=== PATIENT | female | born 2005 | race Caucasian/White ===

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

== ENCOUNTER 2024-03-15 17:40 | Emergency (ER) | payer OTHER, SELFPAY ==
--- NOTE | 2024-03-15 18:36 | ED.HA ---
HPI - Headache General Chief Complaint: Headache Stated Complaint: Migraine Time Seen by Provider: 03/15/24 21:03 Related Data Previous Rx's ?Medication ?Instructions ?Recorded cyclobenzaprine 10 mg tablet 10 mg PO TID PRN muscle spasm #10 02/12/23 tabs lidocaine 5 % topical patch 1 patch topical DAILY #5 ea 02/12/23 tramadol 50 mg tablet 50 mg PO BID PRN pain #4 tabs 02/12/23 ondansetron 4 mg disintegrating 4 mg PO TID PRN nausea and 03/15/24 tablet vomiting 5 days #10 tabs Allergies Allergy/AdvReac Type Severity Reaction Status Date / Time clindamycin Allergy Rash Verified 03/15/24 18:39 PMFSH Past Medical History Surgical History H/O gastric sleeve Social History Social History Smoked in Last 30 Days: No Use of substances other than those prescribed or required for medical reasons: No Advance Directives: No Advance Directives Information Provided: No Patient : No Physical Exam Vital Signs: Vital Signs: Last Vital Signs Temp 98.7 F 03/15/24 21:05 Pulse 83 03/15/24 21:05 Resp 17 03/15/24 21:05 BP 153/100 H 03/15/24 21:05 Pulse Ox 98 03/15/24 21:05 O2 Del Method Room Air 03/15/24 21:05 BMI result Body Mass Index 51.1 Course Course Course Narrative: This is a Rapid Medical Examination (RME) performed by Leodan Charles PA-C in triage. Full HPI, ROS, assessment and treatment plan per primary provider in the Main ED. 19 yo female with history of migraines, history of gastric sleeve presents to the ER for evaluation of a headache that started yesterday morning. +photophobia, +nausea. no improvement with tylenol and motrin. used to be on sumatriptan but no longer has a doctor. hit in the face with a squishy ball at camp yesterday, no LOC. headache has been worse since then. Plan: treat and reassess Medications Administered Discontinued Medications Generic Name Dose Route Start Last Admin Trade Name Freq PRN Reason Stop Dose Admin Diphenhydramine HCl 50 mg 03/15/24 21:48 03/15/24 22:09 Diphenhydramine Hcl 50 Mg/Ml Vial IVPUSH 03/15/24 21:49 50 mg ONCE ONE Administration Sodium Chloride 1,000 mls @ 999 mls/hr 03/15/24 22:00 03/15/24 23:02 Ns IV 03/15/24 23:00 Infused .Q1H1M ANA Infusion Ketorolac Tromethamine 15 mg 03/15/24 21:48 03/15/24 22:09 Ketorolac Tromethamine 15 Mg/Ml Vial IVPUSH 03/15/24 21:49 15 mg ONCE ONE Administration Metoclopramide HCl 10 mg 03/15/24 21:47 03/15/24 22:09 Metoclopramide Hcl 10 Mg/2 Ml Vial IVPUSH 03/15/24 21:48 10 mg ONCE ONE Administration Medical Decision Making Lab Data 03/15/24 22:59 03/15/24 22:25 Labs: Lab Results 03/15/24 03/15/24 Range/Units 22:25 22:59 WBC 9.7 (4.8-10.8) X10*3/uL RBC 4.36 (4.20-5.50) X10*6/uL Hgb 12.5 (12.0-16.0) g/dl Hct 36.8 L (37.0-47.0) % MCV 84.4 (80.0-98.0) fL MCH 28.7 (27.0-33.0) pg MCHC 34.0 (31.0-35.0) g/dl RDW 13.6 (11.0-16.0) % Plt Count 178 (160-400) X10*3/uL MPV 10.2 (9.4-12.3) fL Immature Gran % (Auto) 0.5 H (0.0-0.4) % Neut % (Auto) 61.7 (45-73) % Lymph % (Auto) 30.8 (20-40) % Canadian % (Auto) 5.7 (2-11) % Eos % (Auto) 1.0 (0-4) % Baso % (Auto) 0.3 (0-2) % Lymph # (Auto) 3.0 (1.2-4.9) X10*3/uL Canadian # (Auto) 0.6 (0.1-1.2) X10*3/uL Eos # (Auto) 0.1 (0.0-0.4) X10*3/uL Baso # (Auto) 0.0 (0.0-0.2) X10*3/uL Abs Immat Gran (auto) 0.05 H (0.00-0.03) X10*3/uL Absolute Neuts (auto) 6.0 (2.0-8.3) x10*3/uL Absolute Nucleated RBC 0.000 (0.0-0.012) X10*3/uL Nucleated RBC % (auto) 0.0 (0.0-0.2) /100WBC Sodium 137 (135-145) mmol/L Potassium 4.5 (3.3-5.1) mmol/L Chloride 105 (96-108) mmol/L Carbon Dioxide 19 L (22-29) mmol/L Anion Gap 18 (12-20) BUN 8 L (9-16) mg/dL Creatinine 0.75 (0.5-1.4) mg/dL Estim Creat Clear Calc 199.6 Estimated GFR > 60 Random Glucose 87 (60-115) mg/dL Calcium 9.2 (8.4-10.2) mg/dL Beta HCG, Quant < 2 mIU/mL Discharge Plan Discharge Clinical Impression: Migraine Patient Disposition: Home, Self-Care Instructions: Migraine Headache (ED) Prescriptions: New ondansetron 4 mg tablet,disintegrating 4 mg PO TID PRN (Reason: nausea and vomiting) 5 Days Qty: 10 0RF No Action cyclobenzaprine 10 mg tablet 10 mg PO TID PRN (Reason: muscle spasm) Qty: 10 0RF tramadol 50 mg tablet 50 mg PO BID PRN (Reason: pain) Qty: 4 0RF Rx Instructions: Only uses medication if Tylenol does not work lidocaine 5 % adhesive patch,medicated 1 patch topical DAILY Qty: 5 0RF Rx Instructions: leave on most painful area for up to 12 hrs Referrals: Ade Naqvi MD [Primary Care Provider] - 03/17/24 Print Language: [place]
[2024-03-15 18:38] VITALS: BP 133/95; PULSE 88; RESP 18; TEMP 36.7; O2SAT 99; BMI 51.1
[2024-03-15 21:05] VITALS: BP 153/100; PULSE 83; RESP 17; TEMP 37.1; O2SAT 98
--- NOTE | 2024-03-15 21:49 | ED.HA ---
HPI - Headache General Chief Complaint: Headache Stated Complaint: Migraine Time Seen by Provider: 03/15/24 21:03 History of Present Illness HPI Narrative: Patient is a 19-year-old female presents today with having headaches in the frontal area. Patient got hit in the head by a rubber ball yesterday. Did not have headache right away. The headache started after. Immediately patient did not have nausea vomiting or focal weakness from the trauma. Subsequently patient developed a headache today. Associated with nausea the type of headache is very similar to previous bouts of migraine. Patient is from home. There is no focal weakness. Does not think she is . Related Data Previous Rx's ?Medication ?Instructions ?Recorded cyclobenzaprine 10 mg tablet 10 mg PO TID PRN muscle spasm #10 02/12/23 tabs lidocaine 5 % topical patch 1 patch topical DAILY #5 ea 02/12/23 tramadol 50 mg tablet 50 mg PO BID PRN pain #4 tabs 02/12/23 ondansetron 4 mg disintegrating 4 mg PO TID PRN nausea and 03/15/24 tablet vomiting 5 days #10 tabs Allergies Allergy/AdvReac Type Severity Reaction Status Date / Time clindamycin Allergy Rash Verified 03/15/24 18:39 [facility] Past Medical History Attestation statement: The following information was validated with the patient. Surgical History H/O gastric sleeve Social History Social History Smoked in Last 30 Days: No Use of substances other than those prescribed or required for medical reasons: No Advance Directives: No Advance Directives Information Provided: No Patient : No Physical Exam Vital Signs: Vital Signs: Last Vital Signs Temp 98.7 F 03/15/24 21:05 Pulse 83 03/15/24 21:05 Resp 17 03/15/24 21:05 BP 153/100 H 03/15/24 21:05 Pulse Ox 98 03/15/24 21:05 O2 Del Method Room Air 03/15/24 21:05 BMI result Body Mass Index 51.1 Appearance: Alert. Oriented X3. No acute distress. Eyes: Pupils equal, round and reactive to light. ENT: Pharynx normal. Neck: Normal inspection. Neck supple. No lymph nodes noted. No crepitus CVS: Normal heart rate and rhythm. Pulses normal. Normal S1 and S2 Respiratory: No respiratory distress. Breath sounds normal. No Wheezing. No rales Abdomen: Soft and nontender. No rigidity. No distention. good BS x4 Skin: Skin warm and dry. Normal skin color. Normal skin turgor. Extremities: No lower extremity edema. Neurovascular intact to all extremities. No Lacerations. No Rash Neuro: Oriented X 3. No motor deficit. No sensory deficit. Moving all extermities. No slurred speech Medications Administered Discontinued Medications Generic Name Dose Route Start Last Admin Trade Name Freq PRN Reason Stop Dose Admin Diphenhydramine HCl 50 mg 03/15/24 21:48 03/15/24 22:09 Diphenhydramine Hcl 50 Mg/Ml Vial IVPUSH 03/15/24 21:49 50 mg ONCE ONE Administration Sodium Chloride 1,000 mls @ 999 mls/hr 03/15/24 22:00 03/15/24 23:02 Ns IV 03/15/24 23:00 Infused .Q1H1M ANA Infusion Ketorolac Tromethamine 15 mg 03/15/24 21:48 03/15/24 22:09 Ketorolac Tromethamine 15 Mg/Ml Vial IVPUSH 03/15/24 21:49 15 mg ONCE ONE Administration Metoclopramide HCl 10 mg 03/15/24 21:47 03/15/24 22:09 Metoclopramide Hcl 10 Mg/2 Ml Vial IVPUSH 03/15/24 21:48 10 mg ONCE ONE Administration Medical Decision Making Medical Decision Making [facility] Narrative: Patient's symptoms resolved after migraine cocktail. No fever no chills. No focal weakness. No signs of meningitis. Patient did not have a headache no nausea no vomiting after the rubber ball hitting her head. 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 She is currently in stable condition. Neurologically intact. Differential Diagnosis Differential Diagnoses: The differential diagnosis associated with the presentation includes Admission/Observation Consideration of admission/observation: Escalation of care including admission/observation considered Lab Data [facility] Lab Attestation statement: I reviewed the patient's lab results. 03/15/24 22:59 03/15/24 22:25 Labs: Lab Results 03/15/24 03/15/24 Range/Units 22:25 22:59 WBC 9.7 (4.8-10.8) X10*3/uL RBC 4.36 (4.20-5.50) X10*6/uL Hgb 12.5 (12.0-16.0) g/dl Hct 36.8 L (37.0-47.0) % MCV 84.4 (80.0-98.0) fL MCH 28.7 (27.0-33.0) pg MCHC 34.0 (31.0-35.0) g/dl RDW 13.6 (11.0-16.0) % Plt Count 178 (160-400) X10*3/uL MPV 10.2 (9.4-12.3) fL Immature Gran % (Auto) 0.5 H (0.0-0.4) % Neut % (Auto) 61.7 (45-73) % Lymph % (Auto) 30.8 (20-40) % [place] % (Auto) 5.7 (2-11) % Eos % (Auto) 1.0 (0-4) % Baso % (Auto) 0.3 (0-2) % Lymph # (Auto) 3.0 (1.2-4.9) X10*3/uL [place] # (Auto) 0.6 (0.1-1.2) X10*3/uL Eos # (Auto) 0.1 (0.0-0.4) X10*3/uL Baso # (Auto) 0.0 (0.0-0.2) X10*3/uL Abs Immat Gran (auto) 0.05 H (0.00-0.03) X10*3/uL Absolute Neuts (auto) 6.0 (2.0-8.3) x10*3/uL Absolute Nucleated RBC 0.000 (0.0-0.012) X10*3/uL Nucleated RBC % (auto) 0.0 (0.0-0.2) /100WBC Sodium 137 (135-145) mmol/L Potassium 4.5 (3.3-5.1) mmol/L Chloride 105 (96-108) mmol/L Carbon Dioxide 19 L (22-29) mmol/L Anion Gap 18 (12-20) BUN 8 L (9-16) mg/dL Creatinine 0.75 (0.5-1.4) mg/dL Estim Creat Clear Calc 199.6 Estimated GFR > 60 Random Glucose 87 (60-115) mg/dL Calcium 9.2 (8.4-10.2) mg/dL Beta HCG, Quant < 2 mIU/mL Chronic Conditions Status post gastric bypass. History of migraine Discharge Plan Discharge Clinical Impression: Migraine Patient Disposition: Home, Self-Care Instructions: Migraine Headache (ED) Prescriptions: New ondansetron 4 mg tablet,disintegrating 4 mg PO TID PRN (Reason: nausea and vomiting) 5 Days Qty: 10 0RF No Action cyclobenzaprine 10 mg tablet 10 mg PO TID PRN (Reason: muscle spasm) Qty: 10 0RF tramadol 50 mg tablet 50 mg PO BID PRN (Reason: pain) Qty: 4 0RF Rx Instructions: Only uses medication if Tylenol does not work lidocaine 5 % adhesive patch,medicated 1 patch topical DAILY Qty: 5 0RF Rx Instructions: leave on most painful area for up to 12 hrs Referrals: Ade Naqvi MD [Primary Care Provider] - 03/17/24 Print Language: Irish
[2024-03-15] MEDS: Metoclopramide HCl 10 MG/2 ML VIAL IVPUSH (22:09)
[2024-03-15] MEDS: Ketorolac Tromethamine 15 MG/ML VIAL IVPUSH (22:09)
[2024-03-15] MEDS: diphenhydrAMINE HCL 50 MG/ML VIAL IVPUSH (22:09)
[2024-03-15] MEDS: 0.9 % Sodium Chloride 1,000 ML 999 ML IV (22:10)
[2024-03-15 22:51] LABS: Anion Gap 18 (12-20); Blood Urea Nitrogen 8 mg/dL (9-16); Calcium 9.2 mg/dL (8.4-10.2); Carbon Dioxide 19 mmol/L (22-29); Chloride 105 mmol/L (96-108); Creatinine Clr Calc Pharmacy 199.6; Estimated Glomerular Filt Rate > 60; Glucose Random 87 mg/dL (60-115); Potassium 4.5 mmol/L (3.3-5.1); Sodium 137 mmol/L (135-145)
[2024-03-15 22:52] LABS: HCG Quantitative < 2 mIU/mL
[2024-03-15 23:06] LABS: Basophils Percent Auto 0.3 % (0-2); Eosinophils Absolute Auto 0.1 X10*3/uL (0.0-0.4); Hematocrit 36.8 % (37.0-47.0); Hemoglobin 12.5 g/dl (12.0-16.0); Imm Gran Abs Auto 0.05 X10*3/uL (0.00-0.03); Imm Gran Pct Auto 0.5 % (0.0-0.4); Lymphocytes Percent Auto 30.8 % (20-40); Mean Corpuscular Hemoglobin 28.7 pg (27.0-33.0); Mean Corpuscular Volume 84.4 fL (80.0-98.0); Mean Platelet Volume 10.2 fL (9.4-12.3); Monocytes Absolute Auto 0.6 X10*3/uL (0.1-1.2); Monocytes Percent Auto 5.7 % (2-11); Neutrophils Percent Auto 61.7 % (45-73); Platelet Count 178 X10*3/uL (160-400); Red Blood Count 4.36 X10*6/uL (4.20-5.50); Red Cell Distribution Width 13.6 % (11.0-16.0); White Blood Count 9.7 X10*3/uL (4.8-10.8)
[2024-03-15 23:10] LABS: MANUAL DIFF FLAG NO
[2024-03-15 23:23] VITALS: BP 126/84; PULSE 87; RESP 18; TEMP 36.7; O2SAT 100
== END 2024-03-15 23:24 | disposition home or self-care (01) ==
PROVIDERS: Emergency Provider Emergency Medicine Emergency Medical Services; PCP Pediatrics
DX: G43.909 Migraine, unspecified, not intractable, without status migrainosus (principal); R11.0 Nausea; Z79.899 Other long term (current) drug therapy
CPT/HCPCS: 36415; 80048; 84702; 85025; 96361; 96374; 96375; 99284; 99285; J1200; J1885; J2765